=== PATIENT | female | born 1985 | race Caucasian/White ===

== ENCOUNTER 2019-02-18 00:27 | Inpatient (IN) | payer MEDICAID ==
[2019-02-18] MEDS ORDERED: MISOPROSTOL 200 MCG TAB PR ×2 (01:30→08:00)
[2019-02-18] MEDS ORDERED: OXYTOCIN 30 UNITS/LR 500 ML IV (01:30)
[2019-02-18] MEDS ORDERED: CARBOPROST 250 MCG INJ IM (01:30)
[2019-02-18] MEDS ORDERED: METHYLERGONOVINE 0.2 MG INJ IM (01:30)
[2019-02-18] MEDS: LACTATED RINGER'S 1,000 ML IV ×5 (01:35→17:28)
[2019-02-18 02:27] LABS: ADD MAN DIFF? NO
[2019-02-18 02:31] LABS: BASOPHILS % 0.4 % (0.0-2.0); EOSINOPHILS # 0.2 10^3/ul (0.0-0.5); EOSINOPHILS % 2.4 % (0.0-7.0); HEMATOCRIT 35.2 % (37.0-47.0); HEMOGLOBIN 11.1 g/dl (12.0-16.0); LYMPHOCYTES # 2.3 10^3/ul (0.8-2.9); LYMPHOCYTES % 23.7 % (15.0-51.0); MEAN CORPUSCULAR HEMOGLOBIN 27.8 pg (29.0-33.0); MEAN CORPUSCULAR HGB CONC 31.5 g/dl (32.0-37.0); MEAN PLATELET VOLUME 10.5 fl (7.4-10.4); MONOCYTE # 0.8 10^3/ul (0.3-0.9); MONOCYTES % 7.8 % (0.0-11.0); NEUTROPHIL # 6.2 10^3/ul (1.6-7.5); NEUTROPHILS % 64.7 % (39.0-77.0); PLATELET COUNT 217 10^3/UL (140-415)
[2019-02-18 02:31] LABS: WHITE BLOOD COUNT 9.6 10^3/ul (4.8-10.8)
[2019-02-18 02:42] LABS: RUPTURE FETAL MEMBRANES POSITIVE (NEGATIVE)
[2019-02-18 02:50] LABS: INR 0.86; PROTIME 11.8 Sec (11.9-14.9); PT RATIO 0.9
[2019-02-18 05:16] LABS: HEPATITIS B SURFACE ANTIGEN NEGATIVE (NEGATIVE)
[2019-02-18] MEDS ORDERED: EPHEDrine 50 MG INJ (05:45)
[2019-02-18] MEDS ORDERED: METOCLOPRAMIDE 10 MG INJ (05:45)
[2019-02-18] MEDS ORDERED: CITRIC ACID/NA CITRATE 30 ML CUP PO (06:10)
[2019-02-18] MEDS ORDERED: CITRIC ACID/NA CITRATE 30 ML CUP (06:22)
[2019-02-18] MEDS: CITRIC ACID/NA CITRATE 30 ML CUP PO ×2 (06:29→07:30)
[2019-02-18] MEDS ORDERED: morphine SULFATE/PF (10 MG/10 ML) INJ (06:44)
[2019-02-18] MEDS ORDERED: AZITHROMYCIN (06:45)
[2019-02-18] MEDS ORDERED: [UNRECOGNIZED DRUG - OTHER] (06:45)
[2019-02-18] MEDS ORDERED: ONDANSETRON 4 MG INJ (06:56)
[2019-02-18] MEDS ORDERED: MIDAZOLAM 1 MG/ML 2 ML INJ (07:09)
[2019-02-18] MEDS ORDERED: OXYTOCIN 10 UNIT INJ ×3 (07:09→07:14)
[2019-02-18] MEDS ORDERED: ZOLPIDEM 5 MG TAB PO (07:30)
[2019-02-18] MEDS ORDERED: NALBUPHINE HCL (10 MG/1 ML) INJ IV (07:30)
[2019-02-18] MEDS ORDERED: MIDAZOLAM 1 MG/ML 2 ML INJ IV (07:30)
[2019-02-18] MEDS ORDERED: DIPHENHYDRAMINE 50 MG INJ IV ×2 (07:30)
[2019-02-18] MEDS ORDERED: NALOXONE (0.4 MG/ML) INJ IV (07:30)
[2019-02-18] MEDS ORDERED: HYDROmorphONE 0.5 MG/0.5 ML SYG IV ×2 (07:30)
[2019-02-18] MEDS ORDERED: MEPERIDINE 25 MG INJ IV (07:30)
[2019-02-18] MEDS ORDERED: LANOLIN HPA 1 PKT TOP (08:00)
[2019-02-18] MEDS ORDERED: OXYCODONE/ACETAMINOPHEN (5/325) TAB PO (08:00)
[2019-02-18] MEDS: OXYTOCIN 30 UNITS/LR 500 ML IV ×2 (08:26→12:44)
[2019-02-18] MEDS: SENNA/DOCUSATE NA (8.6MG/50MG) TAB PO ×2 (09:00→21:00)
[2019-02-18] MEDS: CEFAZOLIN 2 GM/50 ML (PMX) 50 ML IVPB (09:09)
[2019-02-18] MEDS: ONDANSETRON 4 MG INJ IV ×2 (10:39→18:28)
[2019-02-18] MEDS: IBUPROFEN 600 MG TAB PO ×3 (12:00→23:27)
[2019-02-18 17:21] LABS: RAPID PLASMA REAGIN NONREACTIVE (NR)
[2019-02-19] MEDS: LACTATED RINGER'S 1,000 ML IV ×3 (01:43→17:10)
[2019-02-19] MEDS: KETOROLAC 30 MG INJ IV (03:35)
[2019-02-19] MEDS: IBUPROFEN 600 MG TAB PO ×4 (06:00→23:40)
[2019-02-19 08:42] LABS: ADD MAN DIFF? NO
[2019-02-19 08:48] LABS: WHITE BLOOD COUNT 11.8 10^3/ul (4.8-10.8)
[2019-02-19 08:48] LABS: BASOPHILS % 0.3 % (0.0-2.0); EOSINOPHILS # 0.1 10^3/ul (0.0-0.5); EOSINOPHILS % 0.7 % (0.0-7.0); HEMATOCRIT 28.2 % (37.0-47.0); HEMOGLOBIN 8.8 g/dl (12.0-16.0); LYMPHOCYTES # 1.8 10^3/ul (0.8-2.9); MEAN CORPUSCULAR HEMOGLOBIN 27.8 pg (29.0-33.0); MEAN CORPUSCULAR HGB CONC 31.2 g/dl (32.0-37.0); MEAN CORPUSCULAR VOLUME 89.2 fl (82.0-101.0); MEAN PLATELET VOLUME 10.4 fl (7.4-10.4); MONOCYTE # 0.8 10^3/ul (0.3-0.9); MONOCYTES % 7.1 % (0.0-11.0); NEUTROPHIL # 8.9 10^3/ul (1.6-7.5); PLATELET COUNT 187 10^3/UL (140-415); RED BLOOD COUNT 3.16 10^6/ul (4.20-5.40); RED CELL DISTRIBUTION WIDTH 14.3 % (11.5-14.5)
[2019-02-19] MEDS: OXYCODONE/ACETAMINOPHEN (5/325) TAB PO (09:40)
[2019-02-19] MEDS: SENNA/DOCUSATE NA (8.6MG/50MG) TAB PO ×2 (09:41→21:59)
[2019-02-19] MEDS: NA PHOSPHATE/BIPHOS 133 ML ENEMA PR (21:59)
[2019-02-20] MEDS: OXYCODONE/ACETAMINOPHEN (5/325) TAB PO ×2 (01:49→15:04)
[2019-02-20] MEDS: IBUPROFEN 600 MG TAB PO ×2 (05:39→12:24)
[2019-02-20] MEDS: SENNA/DOCUSATE NA (8.6MG/50MG) TAB PO (09:33)
[2019-02-20] MEDS: DIPHTH/TET/ACEL PERTUSS (ADULT) 0.5 ML VIAL IM* (15:05)
[2019-02-21] MEDS ORDERED: MEASLES,MUMPS,RUBELLA VACCINE INJ SC* (09:00)
[2019-02-21] MEDS ORDERED: DIPHTH/TET/ACEL PERTUSS (ADULT) 0.5 ML VIAL IM* (09:00)
== END 2019-02-20 17:11 | disposition home or self-care (01) | DRG 785 ==
LOC: OBT 00:27 → L-D 00:29 → OBT 01:00 → L-D 01:00 → PP1 10:54
PROVIDERS: Specialist
PROC: 10D00Z1 Extraction of Products of Conception, Low, Open Approach (ICD-10-PCS; principal; 2019-02-18 07:00)
PROC: 0UT70ZZ Resection of Bilateral Fallopian Tubes, Open Approach (ICD-10-PCS; 2019-02-18 07:00)
DX: O65.5 Obstructed labor due to abnormality of maternal pelvic organs (principal); O34.211 Maternal care for low transverse scar from previous cesarean delivery; Z30.2 Encounter for sterilization; Z3A.38 38 weeks gestation of pregnancy; Z37.0 Single live birth
CPT/HCPCS: 84112; 85025; 85610; 85730; 86592; 86850; 86900; 86901; 87340; 88302; 90715; 99464